=== PATIENT | male | born 1980 | race Caucasian/White ===

== ENCOUNTER 2024-11-02 19:10 | Emergency (ER) | payer SELFPAY ==
[~2024-11-02] VITALS: Ht 180.3 cm; Wt 79.4 kg
[2024-11-02 19:12] VITALS: O2SAT 96
[2024-11-02] MEDS: TETANUS, DIPHTHERIA, PERTUSSIS VAC/PF 0.5ML (>10YR OLD) IM ONE (19:45)
[2024-11-02] MEDS: KETOROLAC 30MG/ML VIAL IM ONE (19:53)
[2024-11-02] MEDS: BACITRACIN ZINC OINT UDPKT TOP ONE (19:53)
[2024-11-02] MEDS: LIDOCAINE HCL/PF 1% 10 MG/ML 5ML VIAL INFIL ONE (19:53)
[2024-11-02 21:22] VITALS: BP 119/81; PULSE 87; RESP 14; TEMP 36.7; O2SAT 96
== END 2024-11-02 21:26 | disposition home or self-care (01) ==
LOC: ER 19:10
DX: S81.812A Laceration without foreign body, left lower leg, initial encounter (principal); W22.8XXA Striking against or struck by other objects, initial encounter; Y93.89 Activity, other specified; Y92.89 Other specified places as the place of occurrence of the external cause; Y99.8 Other external cause status
CPT/HCPCS: 90715; 12001; 90471; 96372; 99284; J1885; J2003; Z7610

== ENCOUNTER 2024-12-02 14:31 | Emergency (ER) | payer SELFPAY ==
[~2024-12-02] VITALS: Ht 180.3 cm; Wt 83.0 kg
[2024-12-02 14:34] VITALS: O2SAT 99
[2024-12-02 14:37] VITALS: BP 113/76; PULSE 72; RESP 16; TEMP 36.8; O2SAT 98
== END 2024-12-02 15:00 | disposition home or self-care (01) ==
LOC: ER 14:44
DX: S81.812D Laceration without foreign body, left lower leg, subsequent encounter (principal); X58.XXXA Exposure to other specified factors, initial encounter
CPT/HCPCS: 99281; Z7610 ×2